=== PATIENT | female | born 1995 | race Caucasian/White ===

== ENCOUNTER 2021-02-01 13:29 | Emergency (ER) | payer OTHER, SELFPAY ==
--- NOTE | ~2021-02-01 | US_ITS ---
EXAMINATION: US OB <=14 wk fetus w TV EXAM DATE: 02/01/2021 16:33 INDICATION: 7 weeks /bleeding/pain/ro ectopic vaginal bleeding. 1st trimester. TECHNIQUE: Pelvic obstetrical transabdominal sonogram was performed by a technologist. There are mu ltiple grayscale and Doppler images available for interpretation. There are no earlier studies of th is gestation for comparison. FINDINGS: Uterus measures 8.1 x 5.2 x 3.8 cm. There is intrauterine gestation sac. pole with heart rate confirmed at 123 beats per minute. The 5 mm crown-rump length corresponds to estimated ge stational age by ultrasound of 6 weeks 2 days, estimated date of confinement 09/25/2021. Yolk sac is identified. There is small subchorionic hemorrhage measuring 12 x 8 x 7 mm. There may be another sm aller subchorionic hemorrhage. The ovaries are morphologically normal, venous flow confirmed bilatera lly. IMPRESSION: 1. Live intrauterine gestation with small subchorionic hemorrhage(s). Reviewed, dictated and finalized at location A.
[2021-02-01 14:20] VITALS: BP 132/85; PULSE 87; RESP 16; TEMP 36.9; O2SAT 100
[2021-02-01 14:44] LABS: Basophils Absolute Auto 0.1 K/mm3 (0.0-0.1); Basophils Percent Auto 0.5 % (0.2-1.2); Eosinophils Absolute Auto 0.1 K/mm3 (0-0.3); Eosinophils Percent Auto 1.3 % (0-4.4); Hematocrit 39.9 % (37.0-47.0); Hemoglobin 13.5 g/dL (12.0-15.0); Immature Granulocyte Absolute 0.03 K/mm3 (0.00-0.031); Immature Granulocyte Percent A 0.3 % (0-0.5); Lymphocytes Absolute Auto 1.81 K/mm3 (0.9-3.2); Lymphocytes Percent Auto 18.6 % (18.3-44.2); Mean Corpuscular HGB Conc 33.8 g/dl (32-36); Mean Corpuscular Hemoglobin 30.7 pg (26-34); Mean Corpuscular Volume 90.7 fl (80-100); Mean Platelet Volume 10.2 fl (7.4-10.4); Monocytes Absolute Auto 0.6 K/mm3 (0.1-0.6); Monocytes Percent Auto 6.2 % (2.6-8.5); Neutrophils Absolute Auto 7.1 K/mm3 (1.3-6.7); Neutrophils Percent Auto 73.1 % (45.5-73.1); Platelet Count Result 250 k/mm3 (150-375); Red Cell Distribution Width 11.4 % (11.5-14.5); White Blood Count 9.8 K/mm3 (4.5-10.0)
--- NOTE | 2021-02-01 15:47 | PC.NURSE ---
pt c/o dark red bleeding today which is different from brown bleeding she was having earlier in the week. also noting lower abd cramping. states this is her first . after speaking with edp ultrasound ordered.
--- NOTE | 2021-02-01 16:19 | ED.FEMALEGU ---
HPI - Female Genitourinary General Chief complaint: Vaginal Bleeding Stated complaint: 7 wks ,bleeding Time Seen by Provider: 02/01/21 16:14 Source: patient and family Mode of arrival: ambulatory Limitations: no limitations History of Present Illness HPI Narrative: Patient is 26 years old white female, presented to the ED with vaginal bleeding, spotting for the last 1 and half week. Used to be brown spotting, today is red-colored blood. Associated with slight abdominal discomfort. Patient is 1, para 0, 0. 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 Patient denies smoking, drinking or using drugs. Patient denies any fever, chills, nausea, vomiting Related Data Home Medications Medication Instructions Recorded Confirmed No Home Medications 02/01/21 02/01/21 Allergies Allergy/AdvReac Type Severity Reaction Status Date / Time No Known Allergies Allergy Mild Verified 02/01/21 15:53 Review of Systems Review of Systems: Narrative: CONSTITUTIONAL: Denies fever, chills, or sweats. EYES: Denies visual changes, redness, or discharge. ENT: Denies rhinorrhea, congestion, sore throat, or otalgia. CARDIOVASCULAR: Denies chest pain, palpitations, or edema. RESPIRATORY: Denies cough or dyspnea. GASTROINTESTINAL: Denies abdominal pain, nausea, vomiting, or diarrhea. GENITOURINARY: Denies dysuria or hematuria. SKIN: Denies rash or itching. MUSCULOSKELETAL: Denies back pain, joint pain, or myalgia. NEUROLOGIC: Denies headache, numbness, or weakness. PSYCHIATRIC: Denies anxiety or depression. PMFSH Social History Social History Gender identity (if verbalized by the patient): Female Exam Narrative: Exam Narrative: General appearance: Well-developed, well-nourished Skin: Normal color Head: Normocephalic, nontraumatic Eyes: Clear conjunctiva ENT: Oropharynx normal, ears normal, nose normal Neck: Supple, nontender Chest and respiratory: Airway patent, no respiratory distress, no accessory muscle use Heart: Regular rate/rhythm Abdomen: Soft, nontender, no organomegaly, quiet bowel sounds Vascular: Normal peripheral pulses, normal capillary refill. Musculoskeletal: Normal range of motion, nontender back Neurologic: Alert and oriented ?3, SYNTHETIC FILAMENT EXTRUDER is normal as tested, no gross motor deficit : External Female Exam: normal external appearance Speculum Exam - Vagina: normal appearance of the vagina, normal palpation and vaginal bleeding (Dark almost black blood around the cervix,) Speculum Exam - Cervix: normal appearance of the cervix, normal palpation and Cervical os closed Bimanual exam- vagina & uterus: normal bimanual exam Bimanual Exam- Adnexa, other: normal adnexae Course Course Emergency Course: Impressions Obstetrics Ultrasound 02/01/21 16:38 IMPRESSION: 1. Live intrauterine gestation with small subchorionic hemorrhage(s). Vital Signs Vital signs: Vital Signs Temperature 36.9 C 02/01/21 14:20 Pulse Rate 87 02/01/21 14:20 Respiratory Rate 16 02/01/21 14:20 Blood Pressure 132/85 02/01/21 14:20 Pulse Oximetry 100 02/01/21 14:20 Temperature 36.9 C 02/01/21 14:20 Pulse Rate 87 02/01/21 14:20 Respiratory Rate 16 02/01/21 14:20 Blood Pressure 132/85 02/01/21 14:20 Pulse Oximetry 100 02/01/21 14:20 MDM - Female Genitourinary MDM Narrative Medical decision making narrative: Vaginal bleeding during , Labs, pelvic ultrasound, pelvic exam, ordered. Further plan to follow Differential Diagnosis Differential diagnosis: Likely urinary tract infection and other (Ectopic , threatened ) Lab Data
[2021-02-01 18:36] VITALS: BP 107/77; PULSE 81; RESP 16; TEMP 37.1; O2SAT 100
== END 2021-02-01 18:57 | disposition home or self-care (01) ==
PROVIDERS: Emergency Medicine; Emergency Provider Emergency Medicine; PCP Family Medicine
DX: O20.0 Threatened abortion (principal); Z3A.01 Less than 8 weeks gestation of pregnancy
CPT/HCPCS: 36415; 76801; 76817; 84702; 85025; 85461; 99284

== ENCOUNTER 2021-08-19 09:36 | Outpatient (CLI) | payer OTHER, SELFPAY ==
[2021-08-19] VITALS (8 sets, daily range): BP systolic 102–127; BP diastolic 66–77; PULSE 78–97
[2021-08-19 10:16] LABS: Basophils Absolute Auto 0.1 K/mm3 (0.0-0.1); Basophils Percent Auto 0.4 % (0.2-1.2); Eosinophils Absolute Auto 0.3 K/mm3 (0-0.3); Eosinophils Percent Auto 2.4 % (0-4.4); Hematocrit 33.3 % (37.0-47.0); Hemoglobin 11.5 g/dL (12.0-15.0); Immature Granulocyte Absolute 0.06 K/mm3 (0.00-0.031); Immature Granulocyte Percent A 0.5 % (0-0.5); Lymphocytes Absolute Auto 1.88 K/mm3 (0.9-3.2); Lymphocytes Percent Auto 16.7 % (18.3-44.2); Mean Corpuscular HGB Conc 34.5 g/dl (32-36); Mean Corpuscular Hemoglobin 31.4 pg (26-34); Mean Platelet Volume 10.3 fl (7.4-10.4); Monocytes Absolute Auto 0.7 K/mm3 (0.1-0.6); Monocytes Percent Auto 5.9 % (2.6-8.5); Neutrophils Absolute Auto 8.3 K/mm3 (1.3-6.7); Neutrophils Percent Auto 74.1 % (45.5-73.1); Platelet Count Result 219 k/mm3 (150-375); Red Blood Count 3.66 M/mm3 (4.2-5.4); Red Cell Distribution Width 12.3 % (11.5-14.5); White Blood Count 11.2 K/mm3 (4.5-10.0)
[2021-08-19 10:31] LABS: Alanine Aminotransferase 15 U/L (4-35); Albumin Level 3.8 g/dL (3.5-5.1); Alkaline Phosphatase 102 U/L (38-126); Anion Gap 7 mmol/L (8-16); Aspartate Amino Transferase 25 U/L (14-36); Bilirubin,Total 0.3 mg/dL (0.2-1.3); Blood Urea Nitrogen 10 mg/dL (7-17); Calcium 9.7 mg/dL (8.4-10.2); Carbon Dioxide 24 mmol/L (22-30); Chloride 104 mmol/L (98-107); Estimated Glomerular Filt Rate > 60; Glucose 105 mg/dL (65-110); Potassium 4.1 mmol/L (3.4-5.0); Sodium 135 mmol/L (137-145); Uric Acid 5.1 mg/dL (2.5-7.5)
[2021-08-19 10:49] LABS: Add Urine Microscopic? YES; Amorphous Sediment Urine Few; Appearance Urine Cloudy (Clear); Bacteria Urine Trace /hpf; Bilirubin Urine Negative (Negative); Blood Urine Negative (Negative); Color Urine Yellow (Yellow); Glucose Urine UA 2+ mg/dL (Negative); Ketones Urine Negative (Negative); Leukocyte Esterase Ur Negative LEU/UL (Negative); Mucus Urine Rare /lpf; Nitrate Urine Negative (Negative); Protein Urine Negative (Negative); Specific Grav Ur 1.014 (1.001-1.035); Squamous Epithelial Cell Urine Moderate /hpf (Few); Urobilinogen Urine Negative mg/dL (<2.0)
[2021-08-19 11:13] LABS: Creatinine Urine 93.4 mg/dL; Total Protein Urine Random 15 mg/dL; Ur Ttl Prot Creatinine Ratio 0.16 mg/mg (0-0.20)
--- NOTE | 2021-08-19 11:17 | PC.NURSE ---
Dr. Sandhu informed of reactive NST, BP's, and lab results (except bile acids). Order for discharge received.
[2021-08-26 19:46] LABS: Chenodeoxycholic Acid <0.5 umol/L (< OR = 3.9); Cholic Acid <0.5 umol/L (< OR = 2.8); Deoxycholic Acid <0.5 umol/L (< OR = 2.3); Total Bile Acids <1.5 umol/L (< OR = 8.3)
== END 2021-08-19 11:25 | disposition home or self-care (01) ==
LOC: ANHOBOP 09:40 → ANHLDR 09:40
PROVIDERS: PCP Family Medicine; Visit Provider Student in an Organized Health Care Education/Training Program
DX: O13.9 Gestational [pregnancy-induced] hypertension without significant proteinuria, unspecified trimester (principal); Z3A.00 Weeks of gestation of pregnancy not specified
CPT/HCPCS: 36415; 59025; 80053; 81001; 82542; 82570; 84156; 84550; 85025; 99199

== ENCOUNTER 2021-08-26 15:08 | Outpatient (CLI) | payer OTHER, SELFPAY ==
[2021-08-26] VITALS (10 sets, daily range): BP systolic 119–134; BP diastolic 69–84; PULSE 77–91
[2021-08-26 15:55] LABS: Basophils Percent Auto 0.3 % (0.2-1.2); Eosinophils Absolute Auto 0.2 K/mm3 (0-0.3); Eosinophils Percent Auto 1.8 % (0-4.4); Hematocrit 31.3 % (37.0-47.0); Hemoglobin 10.9 g/dL (12.0-15.0); Immature Granulocyte Absolute 0.09 K/mm3 (0.00-0.031); Immature Granulocyte Percent A 0.7 % (0-0.5); Lymphocytes Absolute Auto 2.11 K/mm3 (0.9-3.2); Mean Corpuscular HGB Conc 34.8 g/dl (32-36); Mean Corpuscular Hemoglobin 31.6 pg (26-34); Mean Corpuscular Volume 90.7 fl (80-100); Mean Platelet Volume 10.6 fl (7.4-10.4); Monocytes Absolute Auto 0.8 K/mm3 (0.1-0.6); Monocytes Percent Auto 6.8 % (2.6-8.5); Neutrophils Absolute Auto 9.1 K/mm3 (1.3-6.7); Neutrophils Percent Auto 73.4 % (45.5-73.1); Platelet Count Result 202 k/mm3 (150-375); Red Blood Count 3.45 M/mm3 (4.2-5.4); Red Cell Distribution Width 12.3 % (11.5-14.5); White Blood Count 12.4 K/mm3 (4.5-10.0)
[2021-08-26 16:04] LABS: Add Urine Microscopic? YES; Appearance Urine Cloudy (Clear); Bacteria Urine 2+ /hpf; Bilirubin Urine Negative (Negative); Blood Urine Negative (Negative); Color Urine Straw (Yellow); Glucose Urine UA Negative (Negative); Ketones Urine Negative (Negative); Leukocyte Esterase Ur Negative LEU/UL (NEGATIVE); Mucus Urine Rare /lpf; Nitrate Urine Negative (Negative); Protein Urine Negative (Negative); RBC Urine 0-2 /hpf (0-2); Squamous Epithelial Cell Urine Few /hpf (Few); Urobilinogen Urine Negative mg/dL (<2.0); WBC Urine 0-3 /hpf (0-3)
[2021-08-26 16:07] LABS: Alanine Aminotransferase 14 U/L (4-35); Albumin Level 3.7 g/dL (3.5-5.1); Alkaline Phosphatase 105 U/L (38-126); Anion Gap 8 mmol/L (8-16); Aspartate Amino Transferase 22 U/L (14-36); Bilirubin,Total 0.2 mg/dL (0.2-1.3); Blood Urea Nitrogen 10 mg/dL (7-17); Calcium 9.7 mg/dL (8.4-10.2); Carbon Dioxide 20 mmol/L (22-30); Chloride 106 mmol/L (98-107); Estimated Glomerular Filt Rate > 60; Glucose 95 mg/dL (65-110); Potassium 3.5 mmol/L (3.4-5.0); Sodium 134 mmol/L (137-145); Uric Acid 4.9 mg/dL (2.5-7.5)
[2021-08-26 16:13] LABS: Creatinine Urine 25.9 mg/dL; Total Protein Urine Random 17 mg/dL; Ur Ttl Prot Creatinine Ratio 0.66 mg/mg (0-0.20)
[2021-08-26 16:52] LABS: Specific Grav Ur 1.003 (1.001-1.035)
--- NOTE | 2021-08-26 17:35 | PC.NURSE ---
Dr Sandhu informed of lab results and BP's. 24 hour urine ordered.
== END 2021-08-26 17:40 | disposition home or self-care (01) ==
LOC: ANHOBOP 15:11 → ANHOBPP 15:12
PROVIDERS: PCP Family Medicine; Visit Provider Student in an Organized Health Care Education/Training Program
DX: O13.3 Gestational [pregnancy-induced] hypertension without significant proteinuria, third trimester (principal); Z3A.36 36 weeks gestation of pregnancy
CPT/HCPCS: 36415; 59025; 80053; 81001; 82570; 84156; 84550; 85025; 87086; 99199

== ENCOUNTER 2021-08-27 17:58 | Outpatient (NON) | payer OTHER, SELFPAY ==
[2021-08-27 18:04] VITALS: BMI 35.9
[2021-08-27 20:45] LABS: Collection Time Urine 24 HOURS
[2021-08-27 20:51] LABS: Patient Weight 215 Lbs; Total Volume 24 Hour Urine 3200 ml
[2021-08-27 20:56] LABS: Specific Gravity Ur 1.015
[2021-08-27 21:12] LABS: Creatinine Clearance Urine 187.5 ml/min (75-125); Creatinine Urine 59.5 mg/dL; Total Protein Urine Random 16 mg/dL
[2021-08-27 21:44] LABS: Total Protein Urine 24 Hr 512 mg/24hr (28-141)
== END 2021-08-27 17:59 | disposition home or self-care (01) ==
LOC: ANHOBOP 17:59
PROVIDERS: PCP Family Medicine; Visit Provider Student in an Organized Health Care Education/Training Program
DX: Z34.93 Encounter for supervision of normal pregnancy, unspecified, third trimester (principal); Z3A.00 Weeks of gestation of pregnancy not specified
CPT/HCPCS: 81050; 82575; 84156

== ENCOUNTER 2021-09-16 08:22 | Outpatient (RCR) | payer OTHER, SELFPAY ==
[2021-09-07 15:04] LABS: Basophils Percent Auto 0.3 % (0.2-1.2); Eosinophils Absolute Auto 0.3 K/mm3 (0-0.3); Eosinophils Percent Auto 2.3 % (0-4.4); Hematocrit 35.3 % (37.0-47.0); Hemoglobin 12.2 g/dL (12.0-15.0); Immature Granulocyte Absolute 0.08 K/mm3 (0.00-0.031); Immature Granulocyte Percent A 0.7 % (0-0.5); Lymphocytes Absolute Auto 2.11 K/mm3 (0.9-3.2); Lymphocytes Percent Auto 17.2 % (18.3-44.2); Mean Corpuscular HGB Conc 34.6 g/dl (32-36); Mean Corpuscular Hemoglobin 31.5 pg (26-34); Mean Corpuscular Volume 91.2 fl (80-100); Mean Platelet Volume 10.6 fl (7.4-10.4); Monocytes Absolute Auto 0.8 K/mm3 (0.1-0.6); Monocytes Percent Auto 6.5 % (2.6-8.5); Platelet Count Result 253 k/mm3 (150-375); Red Blood Count 3.87 M/mm3 (4.2-5.4); Red Cell Distribution Width 12.3 % (11.5-14.5); White Blood Count 12.3 K/mm3 (4.5-10.0)
[2021-09-07 15:11] LABS: Creatinine Urine 21.6 mg/dL; Total Protein Urine Random 12 mg/dL; Ur Ttl Prot Creatinine Ratio 0.56 mg/mg (0-0.20)
[2021-09-07 15:14] LABS: Alanine Aminotransferase 13 U/L (4-35); Alkaline Phosphatase 134 U/L (38-126); Anion Gap 6 mmol/L (8-16); Aspartate Amino Transferase 23 U/L (14-36); Bilirubin,Total 0.2 mg/dL (0.2-1.3); Blood Urea Nitrogen 12 mg/dL (7-17); Calcium 9.9 mg/dL (8.4-10.2); Carbon Dioxide 21 mmol/L (22-30); Chloride 105 mmol/L (98-107); Estimated Glomerular Filt Rate > 60; Glucose 93 mg/dL (65-110); Sodium 132 mmol/L (137-145); Uric Acid 4.9 mg/dL (2.5-7.5)
[2021-09-07 15:45] VITALS: BP 131/86; PULSE 94
[2021-09-10 09:41] VITALS: BP 130/77; PULSE 85
[2021-09-13 14:59] VITALS: BP 125/83; PULSE 83
--- NOTE | ~2021-09-16 | US_ITS ---
EXAMINATION: US OB limited w BPP EXAM DATE: 09/10/2021 09:32 INDICATION: BPP, MELVIN 3rd trimester. TECHNIQUE: Pelvic obstetrical transabdominal sonogram was performed by a technologist. There are mu ltiple grayscale and Doppler images available for interpretation. FINDINGS: There is a single fetus identified in vertex presentation with a heart rate of 134 beats pe r minute. The placenta is located in the anterior position. There is no sonographic evidence of retr oplacental hemorrhage identified. The amniotic fluid index is 9.3 centimeters, which is lower limits of normal. BIOPHYSICAL PROFILE (performed by the technologist) breathing (30 sec sustained breathing in 30 minutes): 2 out of 2 movement (3 gross body movements in 30 minutes): 2 out of 2 tone (one episode of udbjcuy-hdkxttajt-kgtsbmn limb movement): 2 out of 2 Amniotic fluid pocket (2 cm): 2 out of 2 Total score: 8 out of 8 IMPRESSION: 1. Single fetus with heart rate of 134 bpm. 2. Normal biophysical profile score of 8 out of 8. 3. MELVIN 9.3 cm, lower limits of normal. Reviewed, dictated and finalized at location B. CTOR OF HEMOPHILIA
--- NOTE | ~2021-09-16 | US_ITS ---
EXAMINATION: US OB limited w BPP DATE: 09/16/2021 09:28 INDICATION: Gestational hypertension, third trimester TECHNIQUE: Real-time pelvic ultrasound was performed. The interpreting radiologist was not present fo r the study. COMPARISON: None. FINDINGS: There is a single living fetus in vertex presentation. The placenta is anterior. heart rate is 142 beats per minute (bpm). The amniotic fluid index is 13.1 cm which is normal (normal range: 7.2 cm to 22.6 cm). Biophysical profile performed by the technologist: breathing (30 sec sustained breathing in 30 minutes): 2 out of 2 movement (3 gross body movements in 30 minutes): 2 out of 2 tone (one episode of btfdnxg-qckwzfjvn-mdxojfi limb movement): 2 out of 2 Amniotic fluid pocket (2 cm): 2 out of 2 Total score: 8 out of 8 IMPRESSION: 1. Single living fetus in vertex presentation. 2. Biophysical profile 8 out of 8. Reviewed, dictated and finalized at location A. ECTION MANAGER
[2021-09-16 09:39] VITALS: BP 134/86; PULSE 105
== END 2021-12-06 09:00 | disposition home or self-care (01) ==
LOC: ANHOBOP 08:22
PROVIDERS: PCP Family Medicine; Visit Provider Student in an Organized Health Care Education/Training Program
DX: O16.3 Unspecified maternal hypertension, third trimester (principal); Z3A.37 37 weeks gestation of pregnancy; Z3A.38 38 weeks gestation of pregnancy; Z3A.39 39 weeks gestation of pregnancy
CPT/HCPCS: 36415; 59025; 76815; 76819; 80053; 82570; 84156; 84550; 85025

== ENCOUNTER 2021-09-19 16:57 | Inpatient (IN) | payer OTHER, SELFPAY ==
--- OUTSIDE RECORDS SUMMARY | 2021-09-19 17:03 | XMS_ITS ---
:1995 Author Care Team Providers Name Role Phone Luis Enrique Guardado Primary Care Provider Unavailable Allergies Code Code System Name Reaction Severity Status Onset NKDA ? Medications Name Status Start Date Stop Date ? ? Nortrel (28) 1 mg-35 mcg tablet Active ? Not available Take 1 tablet every day by oral route for 90 days. Ventolin HFA 90 mcg/actuation aerosol Completed ? 02/17/2020 inhaler Problems None recorded. Procedures None recorded. Results Lab Results Date Name Specimen Result Interpretation Description Value Range Status Address ? 02/17/2020 Pap, LB Normal Pap negative for ? Final [facility] Test intraepithelial [facility] Thin lesion or ([facility] [address], [place] 02/17/2020 HPV Normal HPV not detected ? Final [facility] DNA, High [facility] High-ri Risk ([facility] [address], [place] Past Encounters None recorded. Socia
[2021-09-19 17:24] VITALS: BMI 35.9
--- NOTE | 2021-09-19 17:25 | LDADM ---
This patient, Cherie Osborn, was admitted to Labor/Delivery/Recovery 108 on 09/19/21 at 16:57. Plans for labor, pain management and were discussed with patient. Patient/family oriented to hospital policies and general routines including ID bracelet, bed and alarms, visiting hours, pain management, procedures, bathroom and other care routines, personal items, smoking policy, room service/diet and guest tray routines, security routines, and visiting hours. Patient/Family are encouraged to report perceived risks to care and to ask questions if they do not understand what they are told or what they should do. See OBIX for further documentation.
[2021-09-19 17:39] LABS: Basophils Percent Auto 0.3 % (0.2-1.2); Eosinophils Absolute Auto 0.2 K/mm3 (0-0.3); Eosinophils Percent Auto 1.2 % (0-4.4); Hematocrit 33.7 % (37.0-47.0); Hemoglobin 11.6 g/dL (12.0-15.0); Immature Granulocyte Absolute 0.09 K/mm3 (0.00-0.031); Immature Granulocyte Percent A 0.7 % (0-0.5); Lymphocytes Absolute Auto 2.05 K/mm3 (0.9-3.2); Lymphocytes Percent Auto 16.6 % (18.3-44.2); Mean Corpuscular HGB Conc 34.4 g/dl (32-36); Mean Corpuscular Hemoglobin 31.7 pg (26-34); Mean Corpuscular Volume 92.1 fl (80-100); Mean Platelet Volume 10.5 fl (7.4-10.4); Monocytes Absolute Auto 0.6 K/mm3 (0.1-0.6); Monocytes Percent Auto 5.1 % (2.6-8.5); Neutrophils Absolute Auto 9.4 K/mm3 (1.3-6.7); Neutrophils Percent Auto 76.1 % (45.5-73.1); Platelet Count Result 217 k/mm3 (150-375); Red Blood Count 3.66 M/mm3 (4.2-5.4); Red Cell Distribution Width 12.7 % (11.5-14.5); White Blood Count 12.4 K/mm3 (4.5-10.0)
[2021-09-19 17:43] VITALS: BP 140/96; PULSE 93
[2021-09-19] MEDS: DINOPROSTONE 10 MG VAG INSERT VAGINAL (17:44)
[2021-09-19 17:45] VITALS: TEMP 37.5
[2021-09-19 17:59] LABS: Uric Acid 5.3 mg/dL (2.5-7.5)
[2021-09-19 18:01] VITALS: BP 135/88; PULSE 92
[2021-09-19 18:29] LABS: Alanine Aminotransferase 14 U/L (4-35); Albumin Level 3.8 g/dL (3.5-5.1); Alkaline Phosphatase 148 U/L (38-126); Anion Gap 6 mmol/L (8-16); Aspartate Amino Transferase 25 U/L (14-36); Bilirubin,Total 0.3 mg/dL (0.2-1.3); Blood Urea Nitrogen 9 mg/dL (7-17); Calcium 9.7 mg/dL (8.4-10.2); Carbon Dioxide 21 mmol/L (22-30); Chloride 107 mmol/L (98-107); Estimated CRCL calculation 139 ml/min; Estimated Glomerular Filt Rate > 60; Glucose 100 mg/dL (65-110); Potassium 3.6 mmol/L (3.4-5.0); Sodium 134 mmol/L (137-145)
[2021-09-19 18:31] VITALS: BP 128/82; PULSE 94
[2021-09-19 19:01] VITALS: BP 129/88; PULSE 77
[2021-09-19 19:31] VITALS: BP 131/79; PULSE 78
[2021-09-20] VITALS (84 sets, daily range): BP systolic 105–161; BP diastolic 60–112; PULSE 66–201; RESP 16–20; TEMP 36.4–37; O2SAT 91–100
[2021-09-20 07:15] LABS: Rapid Plasma Reagin Non-Reactive (NonReactive)
[2021-09-20] MEDS: LACTATED RINGERS 1,000 ML 125 ML IV CONT (07:27)
[2021-09-20] MEDS: OXYTOCIN 30 UNITS/NS 500 ML 30 UNITS/500 ML BAG 6 UNITS IV CONT (07:30)
[2021-09-20] MEDS: ONDANSETRON INJ 4 MG/2 ML VIAL IV PUSH (08:08)
--- NOTE | 2021-09-20 09:07 | PM.IMHP ---
H&P: HPI History of Present Illness Date/Time: 09/20/21 09:07 Chief Complaint: intrauterine at term preeclampsia Narrative: 26 yo G1 at 39w4d who presents for IOL for preeclampsia. Pt was noted to have elevated BP in outpatient visit. She denies any PreE symptoms. Lab work returned with elevated proteinuria. Pt BP have remained nl to mild range without antihypertensives. She remained asymptomatic. testing remained reassuring. Review of Systems Cardiovascular: Cardiovascular: Denies chest pain, Denies leg edema, Denies palpitations, Denies dyspnea and Denies dyspnea on exertion Respiratory: Respiratory: Denies cough, Denies dyspnea and Denies dyspnea on exertion Gastrointestinal: Gastrointestinal: Denies abdominal pain, Denies constipation, Denies diarrhea, Denies nausea and Denies vomiting Genitourinary: Genitourinary: Denies hematuria, Denies urinary frequency, Denies dysuria, Denies pelvic pain, Denies urinary incontinence and Denies vaginal discharge Neurologic: Reports system reviewed and no additional complaints, except as documented Psychiatric: Psychiatric: Reports no additional psychiatric complaints Endocrine: Endocrine: Denies palpitations [facility] Family History Family History (Updated 08/25/21 @ 13:34 by Natali Ramirez RN) Other No pertinent family history Social History Social History Smoking status: Never smoker Substance use: never Gender identity (if verbalized by the patient): Female Spiritual care concerns: No Meds Home Medications and Allergies Home Medications Medication Instructions Recorded Confirmed Type PNV cmb#95-ferrous fumarate-FA 1 tablet PO DAILY 08/25/21 09/19/21 History [] ergocalciferol (vitamin D2) 5,000 tablet PO DAILY 09/19/21 09/19/21 History omega-3 fatty acids [Fish Oil] 500 mg PO DAILY 09/19/21 09/19/21 History Allergies Allergy/AdvReac Type Severity Reaction Status Date / Time No Known Allergies Allergy Mild Verified 02/01/21 15:53 Vital Signs Vital Signs - 24 hr 09/19/21 17:43 09/19/21 17:45 09/19/21 18:01 Temperature 37.5 C Pulse Rate 93 92 Respiratory Rate Blood Pressure 140/96 H 135/88 Pulse Oximetry 09/19/21 18:31 09/19/21 19:01 09/19/21 19:31 Temperature Pulse Rate 94 77 78 Respiratory Rate Blood Pressure 128/82 129/88 131/79 Pulse Oximetry 09/20/21 00:17 09/20/21 00:31 09/20/21 04:03 Temperature 36.8 C 36.7 C Pulse Rate 92 93 91 Respiratory Rate 16 Blood Pressure 132/80 134/83 137/82 Pulse Oximetry 09/20/21 04:16 09/20/21 04:23 09/20/21 04:25 Temperature Pulse Rate 87 79 79 Respiratory Rate Blood Pressure 140/78 130/83 Pulse Oximetry 09/20/21 06:36 09/20/21 06:46 09/20/21 07:01 Temperature Pulse Rate 84 87 87 Respiratory Rate Blood Pressure 161/86 H 151/96 H 158/102 H Pulse Oximetry 100 09/20/21 07:16 09/20/21 07:38 09/20/21 07:46 Temperature 36.8 C Pulse Rate 89 88 Respiratory Rate Blood Pressure 149/98 H 140/98 H Pulse Oximetry 09/20/21 08:01 09/20/21 08:31 09/20/21 09:01 Temperature Pulse Rate 81 91 74 Respiratory Rate Blood Pressure 127/97 H 138/98 H 126/93 H Pulse Oximetry Exam Const: General: no acute distress Eyes: EOM: EOMs intact bilaterally Neck: Neck: supple Thyroid: thyroid normal Chest: Breast/axilla inspection: normal inspection of the breasts Breast/axilla palpation: normal palpation of the breasts, normal palpation of the axillae and no axillary lymphadenopathy Resp: Effort & Inspection: normal respiratory effort Auscultation: clear to auscultation bilaterally Cardio: Rate: regular rate Rhythm: regular rhythm GI: Inspection: non-distended and other (Gravid) GI Palp: Yes Soft to palpation, No Tenderness to palpation present (GI) and No Guarding due to palpation present (GI) Auscultation: normal bowel sounds :
[2021-09-20] MEDS: SODIUM CHLORIDE 0.9% IV 300 ML 600 ML I-UTERINE (10:49)
[2021-09-20] MEDS: ceFAZolin 2 GM/D5W 50 ML 2 GM/50 ML BAG IVPB (11:20)
--- NOTE | 2021-09-20 11:24 | WPDANESEPPF ---
Anes - Initial Pre Proc Eval Procedure: Operation Date: 09/20/21 11:10 Proposed Procedures p Section - Mk Sandhu MD Date/Time: 09/20/21 11:24 Surgeon: Mk Sandhu MD Pre Op Diagnosis: Induction of Labor Patient Data Age: 26 Gender: F Height: 1.65 m Weight: 98 kg Last Vital Signs Temp 36.4 C L 09/20/21 09:53 Pulse 129 H 09/20/21 11:01 Resp 16 09/20/21 04:03 BP 138/91 H 09/20/21 11:01 Pulse Ox 100 09/20/21 11:09 Allergies Allergy/AdvReac Type Severity Reaction Status Date / Time No Known Allergies Allergy Mild Verified 02/01/21 15:53 Home Medications Medication Instructions Recorded Confirmed Type PNV cmb#95-ferrous fumarate-FA 1 tablet PO DAILY 08/25/21 09/19/21 History [] ergocalciferol (vitamin D2) 5,000 tablet PO DAILY 09/19/21 09/19/21 History omega-3 fatty acids [Fish Oil] 500 mg PO DAILY 09/19/21 09/19/21 History Laboratory Tests 09/19/21 09/19/21 09/19/21 17:23 17:23 17:23 WBC 12.4 K/mm3 H K/mm3 (4.5-10.0) RBC 3.66 M/mm3 L M/mm3 (4.2-5.4) Hgb 11.6 g/dL L g/dL (12.0-15.0) Hct 33.7 % L % (37.0-47.0) MCV 92.1 fl fl (80-100) MCH 31.7 pg pg (26-34) MCHC 34.4 g/dl g/dl (32-36) RDW 12.7 % % (11.5-14.5) Plt Count 217 k/mm3 k/mm3 (150-375) MPV 10.5 fl H fl (7.4-10.4) Immature Gran % (Auto) 0.7 % H % (0-0.5) Neut % (Auto) 76.1 % H % (45.5-73.1) Lymph % (Auto) 16.6 % L % (18.3-44.2) [place] % (Auto) 5.1 % % (2.6-8.5) Eos % (Auto) 1.2 % % (0-4.4) Baso % (Auto) 0.3 % % (0.2-1.2) Lymph # (Auto) 2.05 K/mm3 K/mm3 (0.9-3.2) [place] # (Auto) 0.6 K/mm3 K/mm3 (0.1-0.6) Eos # (Auto) 0.2 K/mm3 K/mm3 (0-0.3) Baso # (Auto) 0.0 K/mm3 K/mm3 (0.0-0.1) Abs Immat Gran (auto) 0.09 K/mm3 H K/mm3 (0.00-0.031) Absolute Neuts (auto) 9.4 K/mm3 H K/mm3 (1.3-6.7) Absolute Nucleated RBC 0.0 K/mm3 K/mm3 (0.0-0.012) Nucleated RBC % 0.0 % % (0.0-0.2) Sodium Potassium Chloride Carbon Dioxide Anion Gap BUN Creatinine Estim Creat Clear Calc Estimated GFR Glucose Uric Acid 5.3 mg/dL mg/dL (2.5-7.5) Calcium Total Bilirubin AST ALT Alkaline Phosphatase Total Protein Albumin RPR Non-reactive (NonReactive) Blood Type Antibody Screen 09/19/21 09/19/21 17:23 17:23 WBC RBC Hgb Hct MCV MCH MCHC RDW Plt Count MPV Immature Gran % (Auto) Neut % (Auto) Lymph % (Auto) [place] % (Auto) Eos % (Auto) Baso % (Auto) Lymph # (Auto) [place] # (Auto) Eos # (Auto) Baso # (Auto) Abs Immat Gran (auto) Absolute Neuts (auto) Absolute Nucleated RBC Nucleated RBC % Sodium 134 mmol/L L mmol/L (137-145) Potassium 3.6 mmol/L mmol/L (3.4-5.0) Chloride 107 mmol/L mmol/L (98-107) Carbon Dioxide 21 mmol/L L mmol/L (22-30) Anion Gap 6 mmol/L L mmol/L (8-16) BUN 9 mg/dL mg/dL (7-17) Creatinine 0.60 mg/dL L mg/dL (0.7-1.0) Estim Creat Clear Calc 139 ml/min ml/min Estimated GFR > 60 (59 - ) Glucose 100 mg/dL mg/dL (65-110) Uric Acid Calcium 9.7 mg/dL mg/dL (8.4-10.2) Total Bilirubin 0.3 mg/dL mg/dL (0.2-1.3) AST 25 U/L U/L (14-36) ALT 14 U/L U/L (4-35) Alkaline Phosphatase 148 U/L H U/L (38-126) Total Protein 7.0 g/dL
--- NOTE | 2021-09-20 12:04 | W.PM.PROC2 ---
Procedure Note - Detailed Date of Procedure 09/20/21 Pre-op Diagnosis Induction of Labor preeclampsia umbilical cord prolapse Post-op Diagnosis same Procedure Performed low transverse section Surgeon Mk Sandhu MD Anesthesia general Indications 26 yo at 39w4d who presented for IOL for preeclampsia. Pt was s/p AROM and cervical sifuentes placement. She had progressed to 4 cm. FHT showed recurrent late decelerations. RN evaluated cervical exam and noted umbilical cord prolapse. RN notified myself. RN was able to hold pressure to relieve the pressure on the umbilical cord. RN remained on the pt bed. Pt was transferred to OR for emergent . Description of Procedure The patient was taken to the operating room. The patient was placed in a supine position with a slight left lateral tilt. A sifuentes catheter was placed with return of clear urine. A Bovie grounding pad was placed. Surgical prep was performed by betadine splash. Pt was given 1 g of Azithromycin for ppx. A surgical time out was performed. Due to the emergent scenario, general anesthesia was necessary and administered. A Pfannenstiel skin incision was then made with the scalpel and carried through to the underlying layer of fascia. The fascia was then incised in the midline and the incision was extended laterally with the Valdez scissors. The superior aspect of the fascia was then grasped with the Eugenie clamps, elevated, and the underlying rectus muscles dissected off bluntly and sharply. Attention was then turned to the inferior aspect of this incision which, in a similar fashion, was grasped, tented up with the Eugenie clamps, and the rectus muscles dissected off both bluntly and sharply. The rectus muscles were then in the midline. The peritoneum was identified and entered bluntly. The peritoneal incision was then extended superiorly and inferiorly with good visualization of the bladder. The vesico-uterine serosa was identified and dissected to create a bladder flap. The bladder blade was reinserted. The uterus was inspected for rotation. A low-transverse uterine incision was made sharply with the scalpel and entry was made into the uterine cavity. An amniotomy was made and copious amounts of clear fluid were noted on return. The uterine incision was extended laterally bluntly. The bladder blade was removed and the fetus was delivered atraumatically. The nose and mouth were suctioned with a bulb syringe. The umbilical cord was clamped twice and cut. The was handed off to the waiting staff. At the time of the delivery, the had good color, tone and grimace. The infant cried with minimal stimulation. A second segment of umbilical cord was clamped and cut for cord blood gasses. Cord blood was collected for determination of the blood type and for direct Vasquez. The placenta was delivered spontaneously without difficulty. The placenta appeared grossly normal and complete. The uterus was exteriorized and cleared of all clots and debris. The uterine incision was repaired using 0-monocryl suture in a running fashion. A second layer of 0 Monocryl suture was used in an imbricating fashion to obtain excellent hemostasis and uterine strength. The uterine closure was inspected for hemostasis. The posterior aspect of the uterus and the broad ligaments were inspected and the posterior cul-de-sac cleared of fluid and blood clots. The uterine closure was again inspected and found to be hemostatic. The uterus was returned to the abdominal cavity. The pericolic gutters were inspected and were cleared of all blood clots and debris. The uterine closure was then re inspected to ensure hemostasis as were all subfascial tissues. The peritoneum was closed using 3-0 vicryl in a running fashion. The fascia was reapproximated with 0-vicryl in a running fashion. The subcutaneous tissue was irrigated and hemostasis achieved with electrocautery. It was reapproximated with 3-0 vicryl i
[2021-09-20] MEDS: MORPHINE SULFATE INJ (*CRX) 10 MG/ML AMP 3 MG IV PUSH ×3 (12:23→13:09)
--- NOTE | 2021-09-20 14:20 | PC.NURSE ---
Patient transferred to post room #284 per stretcher from labor and delivery. Support person present. Oriented to unit, room, information board, rooming in, admission packet and security measures. Patient verbalizes understanding.
[2021-09-20] MEDS: HYDROmorphon 0.2MG/ML PCA(*CRX 6 MG/30 ML PCA.VIAL 1 MG IV CONT (14:41)
--- NOTE | 2021-09-20 15:30 | PC.NURSE ---
1515 - Introductions were made and mother led the discussion of her desires to feeding her baby. Reviewed handwashing to prevent infection before and after taking care of her baby. Mother is reclined in bed with infant skin to skin. is not showing feeding cues at this time.Mother verbalizes she was able latch infant with no discomfort for the first feeding on the left breast. Discussed how to watch for early feeding cues, place skin to skin, then feeding baby when infant is ready or every 2-3 hours. Reviewed positioning/alignment with the use of the mom and baby guide. Reviewed there is to be no pain with , how to detach infant from the breast, visuals to watch for to confirm effective . Reviewed effective latching with resources visual tool/handout/mom and baby guide. Mother has verbalized understanding of watching for feeding cues for responsive feeding or how to stimulate infant to initiate 8-12 times in 24 hours approximately every 2-3 hours from the start of the last feeding, to call for assistance if infant doesn't latch or she has discomfort with nursing. Reported to primary RN.
[2021-09-20] MEDS: DEXTROSE 5%/0.45% SOD CHL 1,000 ML 125 ML IV CONT (17:32)
[2021-09-21] VITALS (7 sets, daily range): BP systolic 118–130; BP diastolic 64–81; PULSE 74–118; RESP 16–20; TEMP 36.3–36.8; O2SAT 97–99
[2021-09-21] MEDS: IBUPROFEN 600 MG TABLET PO ×3 (01:34→15:12)
[2021-09-21] MEDS: HYDROcodone/acetaminophen (*CRX) 5-325 MG TABLET 1 TAB PO ×4 (01:35→20:25)
[2021-09-21 04:59] LABS: Basophils Percent Auto 0.2 % (0.2-1.2); Eosinophils Absolute Auto 0.1 K/mm3 (0-0.3); Eosinophils Percent Auto 0.4 % (0-4.4); Hematocrit 24.4 % (37.0-47.0); Hemoglobin 8.4 g/dL (12.0-15.0); Immature Granulocyte Absolute 0.06 K/mm3 (0.00-0.031); Immature Granulocyte Percent A 0.4 % (0-0.5); Lymphocytes Absolute Auto 1.73 K/mm3 (0.9-3.2); Lymphocytes Percent Auto 12.2 % (18.3-44.2); Mean Corpuscular HGB Conc 34.4 g/dl (32-36); Mean Corpuscular Hemoglobin 31.2 pg (26-34); Mean Corpuscular Volume 90.7 fl (80-100); Mean Platelet Volume 10.9 fl (7.4-10.4); Neutrophils Absolute Auto 11.4 K/mm3 (1.3-6.7); Neutrophils Percent Auto 79.8 % (45.5-73.1); Platelet Count Result 191 k/mm3 (150-375); Red Blood Count 2.69 M/mm3 (4.2-5.4); Red Cell Distribution Width 12.7 % (11.5-14.5); White Blood Count 14.2 K/mm3 (4.5-10.0)
[2021-09-21] MEDS: DOCUSATE SODIUM 100 MG CAPSULE PO ×2 (07:37→15:12)
[2021-09-21] MEDS: POLYSACCHARIDE IRON COMPLEX 150 MG CAPSULE PO ×2 (07:37→15:12)
[2021-09-21] MEDS: MULTIVIT/MIN/PREN/FOL AC/IRON TABLET 1 TAB PO (07:37)
--- NOTE | 2021-09-21 08:21 | P.PNOB_ITS ---
OB - PN: Subj Subjective Date/time seen: 09/21/21 08:21 Patient comments: no complaints, pain well controlled, tolerating diet and flatus present OB - PN: Obj Data Labs CBC & Chem 7: 09/21/21 04:13 09/19/21 17:23 Labs: Laboratory Results - last 24 hr 09/21/21 04:13 WBC 14.2 H RBC 2.69 L Hgb 8.4 L D Hct 24.4 L MCV 90.7 MCH 31.2 MCHC 34.4 RDW 12.7 Plt Count 191 MPV 10.9 H Immature Gran % (Auto) 0.4 Neut % (Auto) 79.8 H Lymph % (Auto) 12.2 L [place] % (Auto) 7.0 Eos % (Auto) 0.4 Baso % (Auto) 0.2 Lymph # (Auto) 1.73 [place] # (Auto) 1.0 H Eos # (Auto) 0.1 Baso # (Auto) 0.0 Abs Immat Gran (auto) 0.06 H Absolute Neuts (auto) 11.4 H Absolute Nucleated RBC 0.0 Nucleated RBC % 0.0 OB - PN A/P Plan day: 1 Plan: routine care Comments: patient doing well H/H 8.11/21, continue iron supplementation afebrile, VSS incision C/D/I sifuentes removed, voiding spontaneously plan for infant circumcision today. Risks, benefits, alternatives discussed. continue routine post op care Time Spent With Patient Time: Total time spent is greater than 50% in coordination of care (as docume nted) at patient's floor/unit and/or counseling patient: Time with patient: less than 15 minutes Review of Systems Constitutional: Constitutional: Reports no additional constitutional complaints Cardiovascular: Cardiovascular: Reports no additional cardiovascular compl aints Respiratory: Respiratory: Reports no additional respiratory complaints Gastrointestinal: Gastrointestinal: Reports no additional gastrointestinal complaints Genitourinary: Genitourinary: Reports no additional female genitourinary complaints Exam Const: General: comfortable and no acute distress Resp: Effort & Inspection: normal respiratory effort Auscultation: clear to auscultation bilaterally Cardio: Rate: regular rate GI: GI Palp: Yes Soft to palpation, Yes Tenderness to palpation present (GI) (around incision ) and No Guarding due to palpation present (GI) Auscultation: normal bowel sounds Other: incision C/D/I, covered with Mcknight Psych: Appearance: grossly normal Mental Status: mental status grossly normal Affect: normal affect
--- NOTE | 2021-09-21 08:24 | PM.OBDSVD ---
DS: Admitting Diagnosis Discharge Date 09/22/21 Admitting Diagnosis intrauterine at term preeclampsia OB - DS: Summary OB Procedures : None OB Procedures Intrapartum: OB Procedures: : None Peripartum Data Infant Delivery Method: Emergency Section (umbilical cord prolapse) Procedures: Procedures Operation Date: 09/20/21 11:10 Actual Procedure Side Surgeon p Section Bilateral Mk Sandhu MD complications: none Status at Discharge Functional status at discharge: independent ambulation Overall status at discharge: patient is progressing back to baseline Time Spent with Patient Time attestation: Total time spent providing and/or coordinating discharge services: Time spent: Less than 30 minutes Exam Const: General: comfortable and no acute distress Resp: Effort & Inspection: normal respiratory effort Auscultation: clear to auscultation bilaterally Cardio: Rate: regular rate GI: Inspection: non-distended GI Palp: Yes Soft to palpation, No Firmness to palpation present (GI), Yes Tenderness to palpation present (GI) (mild tenderness over incision ) and No Guarding due to palpation present (GI) Auscultation: normal bowel sounds Psych: Appearance: grossly normal Mental Status: mental status grossly normal DS: Data Data Completed and Pending Pending studies at discharge: Pending at discharge 09/20/21 12:27 Surgical [PTH] Routine Labs on day of discharge: Labs from last 24 hours 09/21/21 04:13 WBC 14.2 H RBC 2.69 L Hgb 8.4 L D Hct 24.4 L MCV 90.7 MCH 31.2 MCHC 34.4 RDW 12.7 Plt Count 191 MPV 10.9 H Immature Gran % (Auto) 0.4 Neut % (Auto) 79.8 H Lymph % (Auto) 12.2 L [place] % (Auto) 7.0 Eos % (Auto) 0.4 Baso % (Auto) 0.2 Lymph # (Auto) 1.73 Ness # (Auto) 1.0 H Eos # (Auto) 0.1 Baso # (Auto) 0.0 Abs Immat Gran (auto) 0.06 H Absolute Neuts (auto) 11.4 H Absolute Nucleated RBC 0.0 Nucleated RBC % 0.0 Discharge Plan Discharge Discharging Clinician: Mk Sandhu Patient Disposition: Home, Self-Care Activity: as tolerated and pelvic rest Diet: regular Patient Instructions: Antibiotic Form, Preeclampsia and Eclampsia After Delivery (GEN), (DC) Stand Alone Forms: General Discharge Information Follow-up/Referrals: Mk Sandhu MD [Physician] - 1 Week Discharge Medications: New oxycodone-acetaminophen 5-325 mg tablet 1 tablet PO Q6H PRN (Reason: pain) Qty: 30 RF: 0 acetaminophen [Mapap (acetaminophen)] 325 mg Tablet 650 mg PO Q6H PRN (Reason: Mild Pain (1-3)) Qty: 30 RF: 0 polysaccharide iron complex 150 mg iron Capsule 150 mg PO BIDWM Qty: 60 RF: 0 ibuprofen 600 mg Tablet 600 mg PO Q6H PRN (Reason: Cramping) Qty: 30 RF: 0 Continued PNV cmb#95-ferrous fumarate-FA [] 28 mg iron- 800 mcg Tablet 1 tablet PO DAILY RF: 0 ergocalciferol (vitamin D2) 1,000 unit Tablet 5,000 tablet PO DAILY RF: 0 Fish Oil Capsule 500 mg PO DAILY RF: 0 Date of admission: 09/19/21 16:57 Primary Care Provider: Ida Montes Admitting Provider: Mk Sandhu Attending physician on admission: kM Sandhu Condition: Stable
--- NOTE | 2021-09-21 09:07 | PC.NURSE ---
0725 - Family is sleeping and wakes easily when RN enters the room. Mother assisted to the restroom, unwrapped for feeding and dad holding baby. Mother will place baby skin to skin and call for assistance when feeding cues are visualized. 0830 - Parents are responding to well and appropriate. Infant is skin to skin and after several minutes shows feeding cues. Mother places infant in the football position on the right breast. attempts several times with big open wide gape. does latch effectively and sucks for a few seconds, then detaches and shows efforts of swallowing and gagging. Infant placed skin to skin. Mother responds to feeding cues again with no latching. Infant is placed skin to skin after 15 min of efforts. Mother voiced understanding to call for assistance with latching, if there is no latching or discomfort with . Mother will attempt to on the left breast, then pump both breast for milk production stimulation. If there is colostrum collected the parents plan to feed it to the baby with a syringe. Reported to primary RN.
--- NOTE | 2021-09-21 09:14 | WPDANESPN ---
Anes - Prog Note Post-Op Date/Time: 09/21/21 09:14 Cardiovascular status: normal Respiratory status: normal Airway patency: baseline Mental status: baseline Post-Op hydration status: normal Vital Signs: Last Vital Signs Temp 98.2 F 09/21/21 07:30 Pulse 91 09/21/21 07:30 Resp 20 09/21/21 07:30 BP 126/81 09/21/21 07:30 Pulse Ox 98 09/21/21 07:30 Pain Score (VAS): 0 I/O: Intake & Output 09/20/21 09/21/21 09/21/21 23:59 07:59 15:59 Intake Total 1000 2020.5 Output Total 300 3150 Balance 700 -1129.5 Laboratory Tests 09/21/21 04:13 09/19/21 17:23 09/21/21 04:13 WBC 14.2 H RBC 2.69 L Hgb 8.4 L D Hct 24.4 L MCV 90.7 MCH 31.2 MCHC 34.4 RDW 12.7 Plt Count 191 MPV 10.9 H Immature Gran % (Auto) 0.4 Neut % (Auto) 79.8 H Lymph % (Auto) 12.2 L [place] % (Auto) 7.0 Eos % (Auto) 0.4 Baso % (Auto) 0.2 Lymph # (Auto) 1.73 [place] # (Auto) 1.0 H Eos # (Auto) 0.1 Baso # (Auto) 0.0 Abs Immat Gran (auto) 0.06 H Absolute Neuts (auto) 11.4 H Absolute Nucleated RBC 0.0 Nucleated RBC % 0.0 Post-procedural complaints: none Patient Feedback: Patient satisfied with anesthetic care. Other Findings: GETA for emergency CS.
--- NOTE | 2021-09-21 14:39 | PC.NURSE ---
Addendum entered by Samantha Larson RN 09/21/21 14:48: The time in the room was [id number] Original Note: [id number] Consulted with patient to assess needs related to . Mother led conversation with her experience with feeding baby so far. Mother works well with her with good support from dad. Reviewed good handwashing when working with infant, breast, nipples and how to protect the nipples with a deep latch. Mother understands the benefits of skin to skin, responding to feeding cues, frequencies of feeding 8-12 times in 24 hours (approximately 2-3 hours), duration of feedings, milk production, intake/output feeding sheet and signs of adequate intake. Mother has infant skin to skin and is unable to latch . Discussed stimulating infant with skin to skin, hand expressing colostrum, touch and talking to to encourage eating at the breast. Reviewed positioning and alignment, supporting breast, off-centered (asymmetrical latch) and leading with the chin with big open wide gape. Infant was not able to maintain latch after 1-2 sucks and swallows. Nipple care, comfort and healing with warm, wet washcloth to rinse breast and leave to air-dry. After many efforts to maintain an optimal latch mom decided to syringe feed colostrum from an earlier pumping session and pump again for more volume and improving milk production. After pumping, colostrum was left on nipples to dry. Infant was syringe fed a total of 3.7 ml. Mother plans on thawing colostrum that she harvested prior to admit for the next feeding after has been circumcised. Resources used to facilitate learning were used from the visual handout/ tool/mom and baby guide. Mother voiced understanding responding to feeding cues, may need to stimulating infant approximately 2-3 hours from the start of the last feeding, calling for assistance if there is no latch or there discomfort . Reported to primary RN.
[2021-09-22] MEDS: HYDROcodone/acetaminophen (*CRX) 5-325 MG TABLET 1 TAB PO ×2 (00:10→07:39)
[2021-09-22] MEDS: IBUPROFEN 600 MG TABLET PO ×2 (00:10→07:38)
[2021-09-22 07:15] VITALS: BP 124/73; PULSE 83; RESP 14; TEMP 36.2; O2SAT 99
--- NOTE | 2021-09-22 07:22 | PC.NURSE ---
On 09/22/21, the student, Ana Maria Cadena, provided care and completed [facility] documentation on this patient. I have reviewed the student's documentation and agree with the findings.
[2021-09-22] MEDS: POLYSACCHARIDE IRON COMPLEX 150 MG CAPSULE PO (07:38)
[2021-09-22] MEDS: DOCUSATE SODIUM 100 MG CAPSULE PO (07:38)
[2021-09-22] MEDS: MULTIVIT/MIN/PREN/FOL AC/IRON TABLET 1 TAB PO (07:38)
--- NOTE | 2021-09-22 12:29 | PC.NURSE ---
0815 - Consulted with patient on her experience with last night. Mother states that some feedings are easier to get baby to latch than others. She is having difficulty getting infant to maintain latch, not waking up to feed and latching optimally. is in the nursery with the primary RN and doctor for assessing. Parents voiced they would call for assistance with when the returns. Mom states baby will be hungry because he was fed around 0400, then see attempted around 0700 but they picked up baby without being fed. 0900 - 1015 Consulted with patient to assess needs related to . Mother works well with her infant has him skin to skin on her chest. Reviewed good handwashing when working with infant, breast, nipples and how to protect the nipples with a deep latch. Encouraged understanding the benefits of skin to skin, responding to feeding cues, frequencies of feeding 8-12 times in 24 hours (approximately 2-3 hours), duration of feedings, milk production, intake/output feeding sheet and signs of adequate intake. Infant has not had a void since midnight. Discussed stimulating with skin to skin, hand expressing colostrum, touch and talking to to encourage eating at the breast and mother demonstrates this behavior. begins to wake up and show feeding cues with syringe feeding 3 ml of colostrum. Attempt to the left breast were made with football and cross cradle position, along with the nipple shield to train to open with big wide gape and practice sucking. Reviewed positioning and alignment, supporting breast, off-centered (asymmetrical latch) and leading with the chin with big open wide gape. latched optimally to the right breast in football position. Education given to mother of how to visualize suck/swallow ratios and drinking at the breast. was able to maintain latch without discomfort to mother for a few sucks and swallows, then stopped sucking. was syringe fed a total of 10ml of expressed human milk. Resources used to facilitate learning were used from the mom and baby guide. Mother voiced understanding responding to feeding cues, may need to stimulating infant approximately 2-3 hours from the start of the last feeding, calling for assistance if the does not latch or there discomfort . The plan is to rest for a bit and feed again closer to 1200. Reported to primary RN. [id number] RN syringe fed 12 mls of expressed human milk, then dad held up for burping and digestion.
[2021-09-23 08:22] VITALS: BP 130/77; PULSE 80; RESP 20; TEMP 36.8; O2SAT 100
== END 2021-09-22 14:55 | disposition home or self-care (01) | DRG 788 ==
LOC: ANHLDR 17:01 → ANHOB2 09-20 14:24
PROVIDERS: Admitting Provider Student in an Organized Health Care Education/Training Program; PCP Family Medicine; Visit Provider Student in an Organized Health Care Education/Training Program
PROC: 10D00Z1 Extraction of Products of Conception, Low, Open Approach (ICD-10-PCS; CPT 59514; principal; 2021-09-20 11:10)
DX: O14.94 Unspecified pre-eclampsia, complicating childbirth (principal); Z37.0 Single live birth; Z3A.39 39 weeks gestation of pregnancy; O69.0XX0 Labor and delivery complicated by prolapse of cord, not applicable or unspecified; O36.8330 Maternal care for abnormalities of the fetal heart rate or rhythm, third trimester, not applicable or unspecified; O77.0 Labor and delivery complicated by meconium in amniotic fluid
CPT/HCPCS: 36415; 59025; 76815; 76819; 80053; 84550; 85025; 86592; 86850; 86900; 86901; 88307; A9270; J0131; J0456; J0690; J1100; J1170; J2270; J2274; J2405; J2590; J3010; J7030; J7120

== ENCOUNTER 2023-12-11 05:33 | Inpatient (IN) | payer OTHER, SELFPAY ==
[2023-12-11] VITALS (45 sets, daily range): BP systolic 110–132; BP diastolic 53–82; PULSE 56–88; RESP 10–116; TEMP 36–36.7; O2SAT 84–100; BMI 41.6
--- OUTSIDE RECORDS SUMMARY | 2023-12-11 05:40 | XMS_ITS ---
Author Name Unknown Address [address] [place] [address] Phone Organization [facility] Address [address] [place] [address] Phone Care Team Providers Care Sap Crm Developer Name Role Phone JACK BORJAS, LISA C Unavailable [phone] SHYANN BORJAS, GUADALUPE-TUNG Unavailable [phone] Plan of Treatment Findings Encounter Date Ordered Clinical summary pro vided to patient PRODUCE MANAGER EXAM with SYLVAIN PANTOJA- 02/21/2019 Instructions to patient Instructions for patient : B reast Self Exam discussed Last Documented On 9 9:29AM ; [facility] Lose weight Last Documented On 9 9:30AM ; [facility] Gardasil information given a nd series encouraged Series completed! Last Docume
--- OUTSIDE RECORDS SUMMARY | 2023-12-11 05:40 | XMS_ITS | Clinical Summary ---
Author Name Unknown Address [address] [place] [address] Phone Organization [facility] Address [address] [place] [address] Phone Care Team Providers Care Textile Colorist Dyer Name Role Phone JACK BORJAS, LISA C Unavailable [phone] SHYANN BORJAS, GUADALUPE-TUNG Unavailable [phone] Reason for Visit and Chief Complaint The Chief Complaint is: 2 week colpo follow up Plan of Treatment - Clinical summary provided to patient - Last Documented On 04/26/2018 2:23PM ; [facility] Instructions to patient May resume normal activities as tolerated Last Documented On 8 2:14PM ; [facility] Safe sex counseling Last Documented On 8 2:15PM ; [facility] Education and Decision Aids were provided during visit for: Patient counseling : discuss ed with patient importance of f/u re: increased risks of cervical cancer Last Documented On 8 2:14PM ; [facility] Assessments Includes: Assessments from this encounter No Assessments Recorded Instructions Includes: Instructions from this encounter Instructions to patient May resume normal activities as tolerated Last Documented On 8 2:14PM ; [facility] Safe sex counseling Last Documented On 8 2:15PM ; [facility]
--- OUTSIDE RECORDS SUMMARY | 2023-12-11 05:40 | XMS_ITS | Clinical Summary ---
Author Name Unknown Address [address] [place] [address] Phone Organization [facility] Address [address] [place] [address] Phone Care Team Providers Care Foot Piece Assembler Name Role Phone JACK BORJAS, LISA C Unavailable [phone] SHYANN BORJAS, GUADALUPE-TUNG Unavailable [phone] Reason for Visit and Chief Complaint gynecologic annual exam - The Chief Complaint is: Annual Plan of Treatment - Clinical summary provided to patient - Last Documented On 02/19/2018 9:03AM ; [facility] Instructions to patient Instructions for patient : B reast Self Exam discussed Last Documented On 8 8:41AM ; [facility] Lose weight Last Documented On 8 8:42AM ; [facility] Gardasil information given a nd series encouraged Series completed! Last Documented On 8 8:42AM ; [facility] Safe sex counseling Last Documented On 8 8:42AM ; [facility] Education and Decision Aids were provided during visit for: Patient Education: Daily karen cium and vitamin D Last Documented On 8 8:41AM ; [facility] Patient Education: weight be aring exercise Last Documented On 8 8:41AM ; [facility]
--- OUTSIDE RECORDS SUMMARY | 2023-12-11 05:40 | XMS_ITS | Clinical Summary ---
Author Name Unknown Address [address] [place], [place] Phone Organization [facility] Address [address] [place] [address] Phone Care Team Providers Care Plywood Scarfer Tender Name Role Phone JACK BORJAS, LISA C Unavailable [phone] SHYANN BORJAS, GUADALUPE-TUNG Unavailable [phone] Reason for Visit and Chief Complaint gynecologic annual exam - The Chief Complaint is: colpo for ascus negative hpv Plan of Treatment - Clinical summary provided to patient - Last Documented On 04/05/2018 1:04PM ; [facility] Education and Decision Aids were provided during visit for: INFORMED CONSENT DISCUSSION: Colposcopy was discussed in detail including risk of post procedure bleeding. Patient is not to have intercourse for 2 weeks following the procedure. Patient expressed understanding of the above and consented to the procedure Last Documented On 8 12:46PM ; [facility] Assessments Includes: Assessments from this encounter Findings - Abnormal Pap smear of cervix - Last Documented On 04/05/2018 1:04PM ; [facility] - Abnormal Pap smear: atypical squamous cells of undetermined significance - Last Documented On 04/05/2018 1:04PM ; [facility] Instructions Includes: Instructions from this encounter Education and Decision Aids were provided during visit for: INFORMED CONSENT DISCUSSION: Colposcopy was discussed in detail including risk of post procedure bleeding. Patient is not to have intercourse for 2 weeks following the procedure. Patient expressed understanding of the above and consented to the proc
--- OUTSIDE RECORDS SUMMARY | 2023-12-11 05:40 | XMS_ITS | Clinical Summary ---
Author Name Unknown Address [address] [place], [place] Phone Organization [facility] Address [address] [place] [address] Phone Care Team Providers Care Machine Puller And Laster Name Role Phone JACK BORJAS, LISA C Unavailable [phone] SHYANN BORJAS, GUADALUPE-TUNG Unavailable [phone] Reason for Visit and Chief Complaint gynecologic annual exam - The Chief Complaint is: Annual-declines std testing same partner Plan of Treatment - Clinical summary provided to patient - Last Documented On 02/21/2019 9:52AM ; [facility] Instructions to patient Instructions for patient : B reast Self Exam discussed Last Documented On 9 9:29AM ; [facility] Lose weight Last Documented On 9 9:30AM ; [facility] Gardasil information given a nd series encouraged Series completed! Last Documented On 9 9:30AM ; [facility] Safe sex counseling Last Documented On 9 9:30AM ; [facility] Education and Decision Aids were provided during visit for: Patient Education: Daily karen cium and vitamin D Last Documented On 9 9:29AM ; [facility] Patient Education: weight be aring exercise Last Documented On 9 9:29AM ; [facility] Richelle
--- OUTSIDE RECORDS SUMMARY | 2023-12-11 05:40 | XMS_ITS | Clinical Summary ---
Author Name Unknown Address [address] [place] [address] Phone Organization [facility] Address [address] [place] [address] Phone Care Team Providers Care Dramatic Coach Name Role Phone JACK BORJAS, LISA C Unavailable [phone] SHYANN BORJAS, GUADALUPE-TUNG Unavailable [phone] Reason for Visit and Chief Complaint The Chief Complaint is: colpo follow up Plan of Treatment - Clinical summary provided to patient - Last Documented On 04/10/2017 8:43AM ; [facility] Instructions to patient May resume normal activities as tolerated Last Documented On 7 8:39AM ; [facility] Education and Decision Aids were provided during visit for: Patient counseling : discuss ed with patient importance of f/u re: increased risks of cervical cancer Last Documented On 7 8:39AM ; [facility] Assessments Includes: Assessments from this encounter No Assessments Recorded Instructions Includes: Instructions from this encounter Instructions to patient May resume normal activities as tolerated Last Documented On 7 8:39AM ; [facility] Education and Decision Aids were provided during visit for: Patient counseling : discuss ed with patient importance of f/u re: increased risks of cervical cancer Last Documented On
--- OUTSIDE RECORDS SUMMARY | 2023-12-11 05:40 | XMS_ITS ---
Care Plan - [facility] Created on: December 11, 2023 BARR[place] RAMIREZ : 1995 Sex: Female Author Name Unknown Address [address] [place] [address] Phone Organization [facility] Address [address] [place] [address] Phone Care Team Providers Care Distillery Miller Name Role Phone JACK BORJAS, LISA C Unavailable [phone] SHYANN BORJAS, GUADALUPE-TUNG Unavailable [phone]
[2023-12-11] MEDS: ACETAMINOPHEN 500 MG TABLET 1000 MG PO (06:01)
[2023-12-11 06:21] LABS: Basophils Percent Auto 0.3 % (0.2-1.2); Eosinophils Absolute Auto 0.3 K/mm3 (0-0.3); Eosinophils Percent Auto 2.1 % (0-4.4); Hematocrit 37.4 % (37.0-47.0); Hemoglobin 12.4 g/dL (12.0-15.0); Immature Granulocyte Absolute 0.07 K/mm3 (0.00-0.031); Immature Granulocyte Percent A 0.6 % (0-0.5); Lymphocytes Absolute Auto 2.59 K/mm3 (0.9-3.2); Lymphocytes Percent Auto 21.8 % (18.3-44.2); Mean Corpuscular HGB Conc 33.2 g/dl (32-36); Mean Corpuscular Hemoglobin 30.3 pg (26-34); Mean Corpuscular Volume 91.4 fl (80-100); Mean Platelet Volume 10.3 fl (7.4-10.4); Monocytes Absolute Auto 0.7 K/mm3 (0.1-0.6); Monocytes Percent Auto 5.9 % (2.6-8.5); Neutrophils Absolute Auto 8.2 K/mm3 (1.3-6.7); Neutrophils Percent Auto 69.3 % (45.5-73.1); Platelet Count Result 219 k/mm3 (150-375); Red Blood Count 4.09 M/mm3 (4.2-5.4); Red Cell Distribution Width 12.9 % (11.5-14.5); White Blood Count 11.9 K/mm3 (4.5-10.0)
[2023-12-11] MEDS: LACTATED RINGERS 1,000 ML 125 ML IV CONT ×2 (06:21→07:06)
--- NOTE | 2023-12-11 06:44 | LDADM ---
This patient, Cherie Osborn, was admitted to Labor/Delivery/Recovery 120 on 12/11/23 at 05:33. Plans for labor, pain management and were discussed with patient. Patient/family oriented to hospital policies and general routines including ID bracelet, bed and alarms, visiting hours, pain management, procedures, bathroom and other care routines, personal items, smoking policy, room service/diet and guest tray routines, security routines, and visiting hours. Patient/Family are encouraged to report perceived risks to care and to ask questions if they do not understand what they are told or what they should do. See [facility]BIX for further documentation.
[2023-12-11 07:02] LABS: Alanine Aminotransferase 14 U/L (6-35); Alkaline Phosphatase 89 U/L (38-126); Anion Gap 7 mmol/L (4-12); Aspartate Amino Transferase 25 U/L (14-36); Bilirubin,Total 0.4 mg/dL (0.2-1.3); Blood Urea Nitrogen 11 mg/dL (7-17); Calcium 9.4 mg/dL (8.4-10.2); Carbon Dioxide 20 mmol/L (22-30); Chloride 107 mmol/L (98-107); Estimated CRCL calculation 174 ml/min; Estimated Glomerular Filt Rate > 60; Glucose 87 mg/dL (65-110); Potassium 3.7 mmol/L (3.4-5.0); Sodium 134 mmol/L (137-145); Uric Acid 4.8 mg/dL (2.5-7.5)
[2023-12-11] MEDS: ONDANSETRON INJ 4 MG/2 ML VIAL IV PUSH (07:06)
[2023-12-11] MEDS: FAMOTIDINE 20 MG/2 ML VIAL IV PUSH (07:08)
--- NOTE | 2023-12-11 07:27 | WPDANESEPPF ---
Anes - Initial Pre Proc Eval Procedure: Operation Date: 12/11/23 07:30 Proposed Procedures p Repeat Section - Ryder Chen MD Date/Time: 12/11/23 07:27 Surgeon: Ryder Chen MD Pre Op Diagnosis: Repeat , Uterine Scar from prev surgery Patient Data Age: 28 Gender: F Height: 1.65 m Weight: 113.5 kg Last Vital Signs Temp 98.1 F 12/11/23 05:59 Pulse 65 12/11/23 07:12 Resp 18 12/11/23 05:59 BP 115/60 12/11/23 07:12 O2 Del Method Room Air 12/11/23 06:43 Allergies Allergy/AdvReac Type Severity Reaction Status Date / Time No Known Allergies Allergy Mild Verified 11/29/23 12:37 Home Medications Medication Instructions Recorded Confirmed Type vit no.95-ferrous 1 tablet PO DAILY 08/25/21 04/06/23 History fumarate 28 mg-folic acid 800 mcg tablet () ergocalciferol (vitamin D2) 1,000 5,000 tablet PO DAILY 09/19/21 04/06/23 History unit tablet omega-3 fatty acids 500 mg PO DAILY 09/19/21 04/06/23 History medroxyprogesterone 10 mg tablet 10 mg PO DAILY #10 tabs 04/18/23 04/18/23 Rx (Provera) Laboratory Tests 12/11/23 06:15 WBC 11.9 H K/mm3 (4.5-10.0) RBC 4.09 L M/mm3 (4.2-5.4) Hgb 12.4 D g/dL (12.0-15.0) Hct 37.4 % (37.0-47.0) MCV 91.4 fl (80-100) MCH 30.3 pg (26-34) MCHC 33.2 g/dl (32-36) RDW 12.9 % (11.5-14.5) Plt Count 219 k/mm3 (150-375) MPV 10.3 fl (7.4-10.4) Immature Gran % (Auto) 0.6 H % (0-0.5) Neut % (Auto) 69.3 % (45.5-73.1) Lymph % (Auto) 21.8 % (18.3-44.2) [place] % (Auto) 5.9 % (2.6-8.5) Eos % (Auto) 2.1 % (0-4.4) Baso % (Auto) 0.3 % (0.2-1.2) Lymph # (Auto) 2.59 K/mm3 (0.9-3.2) [place] # (Auto) 0.7 H K/mm3 (0.1-0.6) Eos # (Auto) 0.3 K/mm3 (0-0.3) Baso # (Auto) 0.0 K/mm3 (0.0-0.1) Abs Immat Gran (auto) 0.07 H K/mm3 (0.00-0.031) Absolute Neuts (auto) 8.2 H K/mm3 (1.3-6.7) Absolute Nucleated RBC 0.000 K/mm3 (0.0-0.012) Nucleated RBC % 0.0 % (0.0-0.2) Sodium 134 L mmol/L (137-145) Potassium 3.7 mmol/L (3.4-5.0) Chloride 107 mmol/L (98-107) Carbon Dioxide 20 L mmol/L (22-30) Anion Gap 7 mmol/L (4-12) BUN 11 mg/dL (7-17) Creatinine 0.50 L mg/dL (0.7-1.0) Estim Creat Clear Calc 174 ml/min Estimated GFR > 60 (59 - ) Glucose 87 mg/dL (65-110) Uric Acid 4.8 mg/dL (2.5-7.5) Calcium 9.4 mg/dL (8.4-10.2) Total Bilirubin 0.4 mg/dL (0.2-1.3) AST 25 U/L (14-36) ALT 14 U/L (6-35) Alkaline Phosphatase 89 U/L (38-126) Total Protein 8.0 g/dL (6.3-8.2) Albumin 4.0 g/dL (3.5-5.1) RPR Pending Blood Type A Positive Antibody Screen Pending Patient hx anesthesia problems: none Family hx anesthesia problems: none Results Review: All pre-operative results and documents have been reviewed as part of the pre-operative evaluation. [facility] Past Medical History Medical History delivery delivered Aug 2021 Family History Family History Other No pertinent family history Social History Social History Smoking status: Never smoker Alcohol intake: current Alcohol use details: occassional Substance use: never Do You Feel Safe in your Home?: Yes Lack of Transportation: No Lack of Food: Never True Current Housing: I Have Housing Concerned About Future Housing: No Difficulty Paying Gas/Electric Bills: No Difficulty Paying for Meds: No Currently Unemployed: No Education: Don't Know Difficulty w/ Childcare or Family Care: No Occupation/Education: unemployed Additional occupation/education comments: stay at home mom Gender identity (if verbalized by the patient): Female Sexua
--- NOTE | 2023-12-11 07:27 | PM.IMHP ---
H&P: HPI History of Present Illness Date/Time: 12/11/23 07:27 Chief Complaint: preeclampsia without severe features Narrative: Patient is a 28 year old who presents for repeat c section indicated for preeclampsia without severe features. She denies headaches, vision changes, chest pain, dyspnea, RUQ pain or epigastric pain. testing has been reactive, labs wnl outpatient. She reports good movement, no contractions, LOF or VB. Her has been otherwise complicated by hx of c section for cord prolapse. Review of Systems Review of Systems: All systems reviewed & are unremarkable except as noted in HPI and below PMFSH Past Medical History Medical History delivery delivered Aug 2021 Family History Family History Other No pertinent family history Social History Social History Smoking status: Never smoker Alcohol intake: current Alcohol use details: occassional Substance use: never Do You Feel Safe in your Home?: Yes Lack of Transportation: No Lack of Food: Never True Current Housing: I Have Housing Concerned About Future Housing: No Difficulty Paying Gas/Electric Bills: No Difficulty Paying for Meds: No Currently Unemployed: No Education: Don't Know Difficulty w/ Childcare or Family Care: No Occupation/Education: unemployed Additional occupation/education comments: stay at home mom Gender identity (if verbalized by the patient): Female Sexual Orientation (if Verbalized by the Patient): Straight or Heterosexual Spiritual care concerns: No Meds Home Medications and Allergies Home Medications Medication Instructions Recorded Confirmed Type vit no.95-ferrous 1 tablet PO DAILY 08/25/21 04/06/23 History fumarate 28 mg-folic acid 800 mcg tablet () ergocalciferol (vitamin D2) 1,000 5,000 tablet PO DAILY 09/19/21 04/06/23 History unit tablet omega-3 fatty acids 500 mg PO DAILY 09/19/21 04/06/23 History medroxyprogesterone 10 mg tablet 10 mg PO DAILY #10 tabs 04/18/23 04/18/23 Rx (Provera) Allergies Allergy/AdvReac Type Severity Reaction Status Date / Time No Known Allergies Allergy Mild Verified 11/29/23 12:37 Vital Signs Vital Signs - 24 hr 12/11/23 06:05 12/11/23 05:59 12/11/23 07:12 Temperature 98.1 F Pulse Rate 75 65 Respiratory Rate 18 Blood Pressure 128/82 115/60 Oxygen Delivery 12/11/23 06:43 Temperature Pulse Rate Respiratory Rate Blood Pressure Oxygen Delivery Room Air Exam Const: General: comfortable and no acute distress HENMT: Mouth: Yes moist mucous membranes Eyes: General: appearance normal, both eyes and all related structures Resp: Effort & Inspection: normal respiratory effort Cardio: Rate: regular rate Rhythm: regular rhythm Skin: General skin exam: normal color Extrem: General: normal to inspection Psych: Mental Status: mental status grossly normal H&P: Results Labs Labs: Short CBC 12/11/23 Range/Units 06:15 WBC 11.9 H (4.5-10.0) K/mm3 Hgb 12.4 D (12.0-15.0) g/dL Hct 37.4 (37.0-47.0) % Plt Count 219 (150-375) k/mm3 BMP 12/11/23 06:15 Sodium 134 L Potassium 3.7 Chloride 107 Carbon Dioxide 20 L BUN 11 Creatinine 0.50 L Glucose 87 Calcium 9.4 Liver Function 12/11/23 Range/Units 06:15 Total Bilirubin 0.4 (0.2-1.3) mg/dL AST 25 (14-36) U/L ALT 14 (6-35) U/L Alkaline Phosphatase 89 (38-126) U/L Albumin 4.0 (3.5-5.1) g/dL Assessment and Plan Assessment and plan (1) Preeclampsia: Qualifiers: Trimester: third trimester Qualified Code(s): O14.93 - Unspecified pre-eclampsia, third trimester Code(s): O14.90 - Unspecified pre-eclampsia, unspecified trimester Status: Acute
--- NOTE | 2023-12-11 07:32 | WPDHPUPDATE1 ---
History and Physical Update Update Date/Time: 12/11/23 07:32 History and Physical has been reviewed, including an updated exam of the patient. There are NO changes in the patient's condition. Risks, benefits, and alternatives have been discussed and questions answered. Patient agrees to proceed with procedure.
[2023-12-11] MEDS: ceFAZolin 2 GM/D5W 50 ML 2 GM/50 ML BAG IVPB (07:35)
--- NOTE | 2023-12-11 10:50 | W.PM.OBCSD ---
OB - Delivery Note Procedure Delivery date: 12/11/23 Pre-op diagnosis: Preeclampsia w/o severe features and Previous Delivery Post-op Diagnosis: Same Induction method: None Delivery monitor: External FHT Prior to decision for section, ACOG/SMFM labor guidelines were considered and discussed with the patient and staff. Decision made to proceed with the section.: Yes Procedure Performed: Repeat Secondary branch: low cervical, transverse Surgeon: Ryder Chen MD Anesthesia type: Spinal Description of Procedure/Findings: The patient was taken to the operating room where she was placed in the dorsal supine position with a leftward tilt. The electronic monitor was placed and heart rate was found to be reassuring. She was prepped and draped in the normal sterile fashion, and anesthesia was checked to be adequate. A Pfannensteil skin incision was made with the scalpel and carried through to the underlying layer of fascia with the scalpel. The fascia was incised in the midline and the incision extended laterally with the Valdez scissors. The superior aspect of the fascial incision was then grasped with Eugenie clamps, elevated, and the underlying rectus muscles dissected off bluntly and with Valdez scissors. Attention was then turned to the inferior aspect of the fascial incision, which in similar fashion was grasped, elevated, and the rectus muscles dissected off.? The rectus muscles were then in the midline, and the peritoneum entered using two Peans and Metzenbaum scissors. The peritoneal incision was extended superiorly and inferiorly with good visualization of the bladder. With the bladder blade providing retraction and visualization, the lower uterine segment was incised in a transverse fashion with the scalpel. The uterine incision was then extended laterally. The bladder blade was removed and the 's head was elevated and delivered atraumatically. The remainder of the infant was then delivered without difficulty, and the infant's nose and mouth were suctioned with the bulb suction. The umbilical cord was doubly clamped and cut. The was then handed off to the waiting nursing staff. Specimens then obtained as listed below. The placenta was then removed manually and the uterus was exteriorized and cleared of all clots and debris. The uterine incision was repaired with 0-Monocryl in a running, interlocked fashion. The posterior cul-de-sac was manually cleared of all clots and debris. The uterus was returned to the abdomen. The gutters were then manually cleared of all clots and debris.? The uterine incision was visualized to be hemostatic. The fascia was reapproximated with 0-Vicryl in a running fashion. The subcutaneous tissues were irrigated with warmed normal saline, and hemostasis was assured. The subcutaneous tissue was greater than 2 cm and closed in a running fashion with 2-0 plain gut suture.? The skin was closed with 4-0 monocryl in a running subcuticular stitch. Fundal pressure was applied to express remaining intrauterine clots and debris. The patient tolerated the procedure well. Sponge, lap, and needle counts were correct times three per nursing. The patient was taken to the recovery room in stable condition. Specimen: Yes Urine Output: 200 Pathology: Yes Complications: No immediate complications Condition: Stable Disposition: Floor [place] Baby Date of : 12/11/23 Weeks of gestation at delivery: 37 gender: Male Weight (pounds): 6 Weight (ounces): 4 presentation: vertex Placenta delivery description: Expressed Cord Vessel Description: 3 Vessels
[2023-12-11] MEDS: OXYTOCIN 30 UNITS/NS 500 ML 30 UNITS/500 ML BAG 125 UNITS IV CONT (10:54)
[2023-12-11] MEDS: fentaNYL CITRATE INJ (*CRX) 100 MCG/2 ML VIAL 50 MCG IV PUSH (10:56)
--- NOTE | 2023-12-11 11:00 | OBPPTRN ---
Patient transferred to post room #282 via bed. Support person present. Oriented to unit, room, information board, rooming in, admission packet and security measures. Patient verbalizes understanding.
[2023-12-11] MEDS: LORATADINE 10 MG TABLET PO (11:36)
[2023-12-11] MEDS: SIMETHICONE 80 MG TAB.CHEW PO ×2 (11:36→16:50)
--- NOTE | 2023-12-11 12:42 | PC.NURSE ---
[id number] Introductions were made. Mother verbalizes she is able to independently latch with appropriate positioning and alignment. She denies any nipple discomfort and is responsively twice since . We reviewed [id number], different ways to encourage infant to wake to breastfeed and responding to early feeding cues. Parents are confident and decline additional assistance or education at this time. Mother has brought in frozen colostrum for supplementing. Mother is encouraged to call for assistance if her doesn?t latch, pain with latching, questions or concerns. Mother voiced understanding of the information.
--- NOTE | 2023-12-11 12:53 | PC.NURSE ---
1250 - CDC guidelines given to parents for use and storage of the frozen colostrum that they have brought in from home. Parents voiced understanding of the education.
[2023-12-11] MEDS: ACETAMINOPHEN 325 MG TABLET 650 MG PO ×2 (14:06→20:20)
[2023-12-11] MEDS: KETOROLAC 15 MG/ML VIAL (*BKC) IV PUSH ×2 (14:06→20:20)
[2023-12-11 16:45] LABS: Rapid Plasma Reagin Non-Reactive (NonReactive)
[2023-12-11] MEDS: DOCUSATE SODIUM 100 MG CAPSULE PO (16:50)
--- NOTE | 2023-12-11 20:20 | PC.NURSE ---
Offered patient a lidocaine patch for her incision, patient declined at this time and wanted an ice pack instead.
[2023-12-12] VITALS (7 sets, daily range): BP systolic 108–127; BP diastolic 65–75; PULSE 60–82; RESP 16–18; TEMP 36.6–36.9; O2SAT 98–99
[2023-12-12] MEDS: ACETAMINOPHEN 325 MG TABLET 650 MG PO ×4 (02:50→21:50)
[2023-12-12] MEDS: KETOROLAC 15 MG/ML VIAL (*BKC) IV PUSH ×2 (02:50→09:42)
[2023-12-12 04:10] LABS: Basophils Percent Auto 0.3 % (0.2-1.2); Eosinophils Absolute Auto 0.1 K/mm3 (0-0.3); Eosinophils Percent Auto 0.7 % (0-4.4); Hematocrit 28.7 % (37.0-47.0); Hemoglobin 9.8 g/dL (12.0-15.0); Immature Granulocyte Absolute 0.08 K/mm3 (0.00-0.031); Immature Granulocyte Percent A 0.6 % (0-0.5); Lymphocytes Absolute Auto 2.63 K/mm3 (0.9-3.2); Lymphocytes Percent Auto 19.9 % (18.3-44.2); Mean Corpuscular HGB Conc 34.1 g/dl (32-36); Mean Corpuscular Hemoglobin 30.8 pg (26-34); Mean Corpuscular Volume 90.3 fl (80-100); Mean Platelet Volume 10.7 fl (7.4-10.4); Monocytes Absolute Auto 0.9 K/mm3 (0.1-0.6); Monocytes Percent Auto 6.8 % (2.6-8.5); Neutrophils Absolute Auto 9.5 K/mm3 (1.3-6.7); Neutrophils Percent Auto 71.7 % (45.5-73.1); Platelet Count Result 181 k/mm3 (150-375); Red Blood Count 3.18 M/mm3 (4.2-5.4); White Blood Count 13.2 K/mm3 (4.5-10.0)
[2023-12-12] MEDS: MULTIVIT/MIN/PREN/FOL AC/IRON TABLET 1 TAB PO (07:33)
[2023-12-12] MEDS: DOCUSATE SODIUM 100 MG CAPSULE PO ×2 (07:33→15:42)
[2023-12-12] MEDS: POLYSACCHARIDE IRON COMPLEX 150 MG CAPSULE PO ×2 (07:33→15:42)
[2023-12-12] MEDS: SIMETHICONE 80 MG TAB.CHEW PO ×2 (07:33→15:42)
--- NOTE | 2023-12-12 09:04 | WPDANLDPN2 ---
Anes-Prog Note L&D Date/Time: 12/12/23 09:04 Comfortable throughout: section Neuraxial method: spinal Epidural/Spinal procedure site: clean & non-tender Neuro status: Neuro function grossly intact. Cardiovascular status: normal Respiratory status: normal Airway patency: baseline Mental status: baseline Post-Op hydration status: normal Vital Signs: Last Vital Signs Temp 36.6 C 12/12/23 07:29 Pulse 69 12/12/23 07:29 Resp 16 12/12/23 07:29 BP 108/66 12/12/23 07:29 Pulse Ox 98 12/12/23 07:29 O2 Del Method Room Air 12/12/23 07:39 Pain score (VAS): 2/10 I/O: Intake & Output 12/11/23 12/12/23 12/12/23 23:59 07:59 15:59 Intake Total 3250 550 Output Total 1850 1600 Balance 1400 -1050 Post-procedural complaints: none Patient feedback: Patient satisfied with anesthetic care.
--- NOTE | 2023-12-12 09:05 | WPDANLDNPN2 ---
Anes-Prog Note L&D-Neuraxial Date/Time: 12/12/23 09:05 Neuraxial medications: intrathecal PF morphine Opiod-related complaints: none Patient feedback: Patient satisfied with post-operative pain management.
--- NOTE | 2023-12-12 10:16 | PC.NURSE ---
[id number] Purposefully rounded to assess for needs. is in the nursery for circumcision. Reminded parents of [id number] and massage touch to wake to breastfeed on return. [id number] Mother demonstrates her ability to independently latch with appropriate positioning and alignment. She denies any nipple discomfort and is responsively . Infant is currently meeting outcomes for weight, output, jaundice, blood sugar and feeding frequencies of 8-12 times in 24 hours. Encouraged parents on how to watch for signs of effective with longer sucks, dropping of the jaw for swallowing. Reviewed with parents there is to not be clicking and demonstrated bringing in closer to mothers body with good support. Mother declines any additional assistance or education at this time. Mother is encouraged to call for assistance if her doesn?t latch, pain with latching, questions or concerns. Mother voiced understanding of information shared along with the feeding sheet and the mom/baby guide for an additional resource.
[2023-12-12] MEDS: IBUPROFEN 600 MG TABLET PO ×2 (15:42→21:50)
[2023-12-13 04:00] VITALS: BP 125/72; PULSE 87
[2023-12-13] MEDS: ACETAMINOPHEN 325 MG TABLET 650 MG PO ×2 (04:00→10:00)
[2023-12-13] MEDS: IBUPROFEN 600 MG TABLET PO ×2 (04:00→10:00)
[2023-12-13 07:40] VITALS: BP 137/83; PULSE 78; RESP 16; TEMP 36.9; O2SAT 100
--- NOTE | 2023-12-13 08:47 | PM.OBPNVD ---
OB - PN: Subj Subjective Date/time seen: 12/13/23 08:47 Interval history: POD#2 Doing well, no issues Pain well controlled Tolerating general diet Voiding without issue Ready for discharge home OB - PN: Obj Data Labs 12/12/23 03:35 12/11/23 06:15 OB - PN A/P Assessment and Plan (1) Preeclampsia: Qualifiers: Trimester: third trimester Qualified Code(s): O14.93 - Unspecified pre-eclampsia, third trimester Code(s): O14.90 - Unspecified pre-eclampsia, unspecified trimester Status: Acute (2) S/P : Code(s): Z98.891 - History of uterine scar from previous surgery Status: Acute Plan day: 2 Plan: routine care and discharge home Time Spent With Patient Time: Total time spent is greater than 50% in coordination of care (as documented) at patient's floor/unit and/or counseling patient: Review of Systems Review of Systems: All systems reviewed & are unremarkable except as noted in HPI and below Exam Const: General: comfortable and no acute distress HENMT: Mouth: Yes moist mucous membranes Eyes: General: appearance normal, both eyes and all related structures Resp: Effort & Inspection: normal respiratory effort Cardio: Rate: regular rate Rhythm: regular rhythm Skin: General skin exam: normal color Extrem: General: normal to inspection Psych: Mental Status: mental status grossly normal
--- NOTE | 2023-12-13 08:50 | PC.NURSE ---
Patient viewed the discharge video Mother & Baby Care, The First Two Weeks . Patient was given the opportunity and encouraged to ask questions. Patient verbalized understanding of information shared and has been given the mother/baby guide for home reference.
[2023-12-13] MEDS: POLYSACCHARIDE IRON COMPLEX 150 MG CAPSULE PO (08:56)
[2023-12-13] MEDS: MULTIVIT/MIN/PREN/FOL AC/IRON TABLET 1 TAB PO (08:57)
[2023-12-13] MEDS: DOCUSATE SODIUM 100 MG CAPSULE PO (08:57)
--- NOTE | 2023-12-13 09:59 | PC.NURSE ---
[id number] Consulted with mother concerning needs and she shared her ability to independently latch infant optimally without pain. Mother is feeding appropriately for growth of infant and understands stimulating to eat if needed. Infant is latched to the right breast using football positioning, however; keeps doing a motion of pushing more breast into the infants mouth as Dr. Bettencourt talks with parents. Once Dr. Bettencourt has left assessment of the latch was done and it appears is not latched optimally and swallowing. When mother detaches the nipple is slightly misshaped with a slant on the underside. Encouraged mother to wait for a big, open, wide gape, then latch deeply and supporting that optimal latch. demonstrates longer sucks, good rocking jaw lowering jaw often for swallowing. Mother shared her breast feel heavier today and she feels like her milk is coming in . Infant has had appropriate feedings in the last 24 hours meets the outcomes for weight, output, blood sugar and jaundice at this time. Reinforced understanding of milk production, transition of milk, signs of adequate intake, transition of stool, prevention/relief of engorgement, plugged ducts, mastitis, responsive watching for feeding cues, the different methods of stimulating infant to breastfeed 1-3 hours after the start of the last feeding, community resources, and when to call a provider using the resource of the feeding sheet along with the mom and baby guide. Mother voiced understanding of the information shared, is confident to continue effectively her at home, when to call for assistance, denies any additional assistance or education at this time. Reported to the Primary RN.
--- NOTE | 2023-12-13 21:28 | PM.OBDSVD ---
DS: Admitting Diagnosis Discharge Date 12/13/23 Admitting Diagnosis repeat c section, preeclampsia without severe features DS: Discharge Diagnosis Discharge Diagnosis (1) S/P : Code(s): Z98.891 - History of uterine scar from previous surgery Status: Acute (2) Preeclampsia: Qualifiers: Trimester: third trimester Qualified Code(s): O14.93 - Unspecified pre-eclampsia, third trimester Code(s): O14.90 - Unspecified pre-eclampsia, unspecified trimester Status: Acute OB - DS: Summary OB Procedures : None OB Procedures Intrapartum: low cervical, transverse OB Procedures: : None Peripartum Data Procedures: Procedures Operation Date: 12/11/23 07:30 Actual Procedure Side Surgeon p Repeat Section Not Applicable Ryder Chen MD Time Spent with Patient Time attestation: Total time spent providing and/or coordinating discharge services: DS: Data Data Completed and Pending Completed studies during hospitalization: Pending at discharge 12/11/23 09:14 Surgical [PTH] Routine Discharge Plan Discharge Attending physician on discharge: Ryder Chen Discharging Clinician: Ryder Chen Patient Disposition: Home, Self-Care Activity: may shower, may drive after 2 weeks and pelvic rest Diet: as tolerated Discharge Instructions: Education: Mom and Baby Guide Given to: Mother Follow-Up: Call your delivering provider's office for an appointment to be seen in: 1 Week Mom and baby should come to the [facility] for the follow-up appointment. Appointment Date/Time: December 15, 2023 at 10:00 am What to expect at your follow-up visit: Blood Pressure Check & Physical Assessment Call [phone] if you are unable to keep your appointment time. BREAST CARE: * Wear a snug supportive bra. * For engorgement discomfort: Breast Feeding: * Apply warm moist washcloths * Express milk as needed to relieve engorgement * Wear loose clothing * For sore nipples: * Identify correct latch-on * Apply warm moist washcloths before and after nursing * Air dry nipples after nursing * May apply Lansinoh cream to nipples ABDOMINAL INCISION: * Allow incision to air dry * Do NOT use lotions for powders on your incision * When showering, allow soap and water to run over the incision, but do not wash incision PERINEAL CARE: * Until bleeding stops, use your bartolome bottle after urinating * Change your pad frequently throughout the day * You may take sitz baths several times a day (fill your bathtub with warm water and soak for 20 minutes.) Do NOT bathe in the water * No tub baths until seen by your physician - You may shower ACTIVITY: * Rest as much as possible. * Do not exercise or lift anything heavier than your baby (such as laundry or other children.) * Avoid stairs or driving as much as possible. * Do not put anything into the vagina. No douching, tampons, or sexual activity until seen by physician. NOTIFY PHYSICIAN IF YOU HAVE ANY QUESTIONS OR IF ANY OF THE FOLLOWING SYMPTOMS OCCUR: * If your incision becomes red, swollen, or more painful than what you have experienced in the hospital. * If your vaginal bleeding becomes foul smelling. * If your vaginal bleeding becomes more heavy than a period or if your bleeding changes from pink to bright red. However, you may pass an occasional walnut-sized clot once or twice for the first week . * If you experience a sharp, shooting pain in you calves. * If you discover a hard, reddened area on your breast or if you experience flu-like symptoms. DIET: * Eat regular, well-balanced meals. * Drink plenty of fluids daily. If , drink to thirst. Patient Instructions: Your Baby (DC) Stand Alone Forms: General Discharge Information Follow-up/Referrals: Ryder Chen
[2023-12-15 10:15] VITALS: BP 122/84; PULSE 77; RESP 18; TEMP 37.1; O2SAT 100
== END 2023-12-13 10:20 | disposition home or self-care (01) | DRG 788 ==
LOC: ANHLDR 05:38 → ANHOB2 11:06
PROVIDERS: Admitting Provider Obstetrics & Gynecology; Visit Provider Obstetrics & Gynecology
PROC: 10D00Z1 Extraction of Products of Conception, Low, Open Approach (ICD-10-PCS; CPT 59514; principal; 2023-12-11 07:30)
DX: O34.219 Maternal care for unspecified type scar from previous cesarean delivery (principal); O14.04 Mild to moderate pre-eclampsia, complicating childbirth; O99.824 Streptococcus B carrier state complicating childbirth; Z3A.37 37 weeks gestation of pregnancy; Z37.0 Single live birth
CPT/HCPCS: 36415; 80053; 84550; 85025; 86592; 86850; 86900; 86901; 88307; A9270; J0690; J1885; J2274; J2405; J2590; J3010; J7120